=== PATIENT | female | born 1960 | race Caucasian/White ===

== ENCOUNTER 2020-10-15 18:29 | Emergency (ER) | payer OTHER ==
--- NOTE | 2020-10-15 19:31 | XRAY Report ---
PROCEDURE: Wrist 4 View RT INDICATIONS: Trauma TECHNIQUE: 4 views of the wrist were acquired. COMPARISON: None FINDINGS: Bones: Comminuted, intra-articular fracture of the distal right radius. Displaced ulnar styloid tip f racture. Suggestion of possible distal ulnar fracture on the lateral view. No suspicious bony lesions . Scaphoid view: Scaphoid appears intact. Scapholunate interval is maintained. Soft tissues: No suspicious soft tissue calcifications. IMPRESSION: Comminuted, intra-articular distal right radial fracture. Displaced ulnar styloid process fracture with possible distal ulnar metaphyseal fractures seen only o n the lateral view. Reviewed by: Orlando Salomon MD on 10/15/2020 7:29 PM PST Approved by: Orlando Salomon MD on 10/15/2020 7:29 PM PST Station ID: [id number]
--- NOTE | 2020-10-15 19:33 | ED Physician Documentation ---
PD HPI UPPER EXT INJURY - Stated complaint Stated Complaint: FALL,WRIST INJ - Chief complaint Chief Complaint: Ext Problem - History obtained from History obtained from: Patient - History of Present Illness Location: Right, Wrist Type of injury: Fall Where injury occurred: Home Timing - onset: Enter time (18:00), Today Timing - details: Abrupt onset Pain level now: 5 Improved by: Rest Worsened by: Moving, Palpating Associated symptoms: Swelling. No: Weakness, Numbness, Tingling Contributing factors: No: Anticoagulated, Prior ortho surgery Similar symptoms before: Has not had sx before Recently seen: Not recently seen - Additonal information Additional information: patient fell down 2-3 steps at home at approximately 6 PM tonight, tripped. she is right hand dominant, c/o right wrist pain. denies head injury, denies neck injury. Review of Systems Skin: denies: Abrasion (s), Laceration (s) Musculoskeletal: reports: Extremity pain, Joint pain, Extremity swelling, Joint swelling. denies: Neck pain, Back pain Neurologic: denies: Focal weakness, Numbness PD PAST MEDICAL HISTORY - Past Medical History Past Medical History: No - Past Surgical History Past Surgical History: No - Present Medications Home Medications: Ambulatory Orders Medication Instructions Recorded Confirmed HYDROcod/ACETAM 5/325 [[place] 5/325] 1 - 2 ea PO Q6H PRN #15 10/15/20 - Allergies Allergies/Adverse Reactions: Allergies Allergy/AdvReac Type Severity Reaction Status Date / Time No Known Drug Allergies Allergy Verified 10/15/20 18:44 - Social History Does the pt smoke?: No Smoking Status: Never smoker Does the pt drink ETOH?: Yes Does the pt have substance abuse?: No - Immunizations Immunizations are current?: Yes PD ED PE NORMAL - Vitals Vital signs reviewed: Yes - General General: Alert and oriented X 3, No acute distress, Well developed/nourished - HEENT HEENT: Atraumatic - Derm Derm: Normal color, Warm and dry - Neuro Neuro: No motor deficit, No sensory deficit PD ED PE EXPANDED - Extremities Extremities: Tenderness (right wrist), Limited ROM (right wrist), Swelling (right wrist, dorsal surface), Other Results - Vitals Vitals: Vital Signs - 24 hr 10/15/20 20:13 Temperature 37.1 C Heart Rate 66 Respiratory 16 Rate Blood Pressure 145/97 H O2 Saturation 99 Oxygen O2 Source Room air - Rads (name of study) right wrist xrays Radiology: Prelim report reviewed, See rad report Procedures - Splint (location) Upper extremity right Splint applied by: Tech Type of splint: Short arm, Sugar tong Other: Patient tolerated well, No complications, Neurovascular intact, Good alignment, Sling provided PD MEDICAL DECISION MAKING - ED course Complexity details: reviewed results, re-evaluated patient, considered differential, d/w patient Departure - Departure Disposition: 01 Home, Self Care Clinical Impression: Wrist fracture, right Qualifiers: Encounter type: initial encounter Fracture type: closed Qualified Code(s): S62.101A - Fracture of unspecified carpal bone, right wrist, initial encounter for closed fracture Condition: Good Instructions: ED Sling, ED Splint Care Fiberglass, ED Fx Wrist General Follow-Up: Jay Dodson MD [Provider Admit Priv/Credential] - (3-4 days ) Prescriptions: HYDROcod/ACETAM 5/325 [[place] 5/325] 1 - 2 ea PO Q6H PRN #15 PRN Reason: Pain Discharge Date/Time: 10/15/20 20:21
[2020-10-15] MEDS ORDERED: HYDROcod/ACET 5/325 Prepack 4 PO STA (19:42)
[2020-10-15 20:15] VITALS: BP 145/97
== END 2020-10-15 20:21 | disposition home or self-care (01) ==
LOC: ED 18:29
DX: S52.571A Other intraarticular fracture of lower end of right radius, initial encounter for closed fracture (principal); S52.611A Displaced fracture of right ulna styloid process, initial encounter for closed fracture; W10.9XXA Fall (on) (from) unspecified stairs and steps, initial encounter; Y93.01 Activity, walking, marching and hiking; Y92.009 Unspecified place in unspecified non-institutional (private) residence as the place of occurrence of the external cause
CPT/HCPCS: 99283

== ENCOUNTER 2020-10-28 07:33 | Outpatient (CLI) | payer OTHER ==
--- NOTE | 2020-10-28 16:19 | XRAY Report ---
PROCEDURE: Wrist 3 View RT INDICATIONS: CLOSED FX RIGHT WRIST TECHNIQUE: 3 views of the wrist were acquired. COMPARISON: 10/15/2020 wrist x-ray FINDINGS: Bones: No change in alignment of distal radial and ulnar fractures. Scaphoid view: Not requested Soft tissues: No suspicious soft tissue calcifications. IMPRESSION: No change in distal radial and ulnar fractures. Reviewed by: Afsaneh Brandon MD on 10/28/2020 4:18 PM PST Approved by: Afsaneh Brandon MD on 10/28/2020 4:18 PM PST Station ID: [id number]
== END 2020-10-28 23:59 | disposition home or self-care (01) ==
LOC: DI.N 07:33
PROVIDERS: ATTEND Orthopaedic Surgery
DX: S52.571A Other intraarticular fracture of lower end of right radius, initial encounter for closed fracture (principal)

== ENCOUNTER 2020-11-26 11:29 | Outpatient (CLI) | payer OTHER ==
--- NOTE | 2020-11-26 16:43 | XRAY Report ---
PROCEDURE: Wrist 3 View RT INDICATIONS: RIGHT RADIUS FRACTURE TECHNIQUE: 3 views of the wrist were acquired. COMPARISON: 10/28/2020 and 10/15/2020. FINDINGS: Bones: Comminuted, intra-articular radius fracture and ulnar styloid process fracture is redemonstrat ed. Bridging trabeculae performed at the site of the distal radius fracture compatible with progressi on of healing. Soft tissues: No suspicious soft tissue calcifications. IMPRESSION: Healing distal radius fracture. Reviewed by: Yvonne Jarquin MD, PhD on 11/26/2020 4:42 PM PDT Approved by: Yvonne Jarquin MD, PhD on 11/26/2020 4:42 PM PDT Station ID: [id number]
== END 2020-11-26 23:59 | disposition home or self-care (01) ==
LOC: DI.N 11:29
PROVIDERS: ATTEND Orthopaedic Surgery
DX: S52.501D Unspecified fracture of the lower end of right radius, subsequent encounter for closed fracture with routine healing (principal)

== ENCOUNTER 2024-04-03 15:41 | Outpatient (CLI) | payer OTHER | END 2024-04-03 15:42 | disposition home or self-care (01) | LOC: LAB 15:41 | PROVIDERS: ATTEND Family Medicine | DX: R17 Unspecified jaundice (principal) | CPT/HCPCS: 36415; 82247 ==